=== PATIENT | female | born 1995 | race Caucasian/White ===

== ENCOUNTER 2021-04-27 01:39 | Emergency (ER) | payer MEDICAID ==
[~2021-04-27] VITALS: Ht 167.6 cm; Wt 52.2 kg
--- NOTE | 2021-04-27 02:45 | NUR ---
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 -LOC. PATIENT IS A/O X 4, RR EVEN AND UNLABORED, NO SIGNS OF SOB NOTED. PATIENT CONNECTED TO [employer] AND POX.
--- NOTE | 2021-04-27 03:25 | NUR ---
RAD AT BEDSIDE
[2021-04-27] MEDS ORDERED: IBUPROFEN 400 MG TABLET ONE (05:11)
[2021-04-27] MEDS ORDERED: IBUPROFEN 400 MG TABLET PO ONE (05:30)
[2021-04-27] MEDS ORDERED: IBUP-1957 PO (05:56)
--- NOTE | 2021-04-27 06:03 | NUR ---
Patient discharged to home in stable condition. Rx and Written and verbal after care instructions given. Patient verbalizes understanding of instruction.
[2021-04-27 06:04] VITALS: BP 112/54
== END 2021-04-27 06:04 | disposition home or self-care (01) ==
LOC: ER 02:32
DX: S20.213A Contusion of bilateral front wall of thorax, initial encounter (principal); V00.131A Fall from skateboard, initial encounter; Y93.51 Activity, roller skating (inline) and skateboarding; Y92.331 Roller skating rink as the place of occurrence of the external cause; Y99.8 Other external cause status
CPT/HCPCS: 71111-TC